=== PATIENT | female | born 1970 | race Caucasian/White ===

== ENCOUNTER 2018-05-10 11:02 | Emergency (ER) | payer OTHER, SELFPAY ==
[2018-05-10 11:04] VITALS: BP 130/84; PULSE 123; PULSE 126; RESP 17; TEMP 36.4; O2SAT 96; BMI 35.2
--- NOTE | 2018-05-10 11:10 | EKG12_ITS ---
Test Reason : TACHYCARDIA Blood Pressure : / mmHG Vent. Rate : 125 BPM Atrial Rate : 125 BPM P-R Int : 150 ms QRS Dur : 070 ms QT Int : 294 ms P-R-T Axes : 051 073 033 degrees QTc Int : 424 ms Sinus tachycardia Nonspecific T wave abnormality Abnormal ECG Confirmed by LAN AUGUST MD ([id number]), design editor AD REY ([id number] on 05/16/2018 8:52:58 AM Referred By: EDWIGE Confirmed By:LAN AUGUST MD
--- NOTE | 2018-05-10 11:18 | NURSING ---
NO OLD EKGS
--- NOTE | 2018-05-10 11:45 | RAD_ITS ---
STUDY: X-RAY CHEST REASON FOR EXAM: Female, 47 years old. Chest pain TECHNIQUE: Single AP portable view of the chest. COMPARISON: None. FINDINGS: Left chest wall Mediport with tip in the upper SVC The lungs are clear and expanded. There is no demonstrated pleural abnormality. Normal size heart. Normal mediastinum and raheem. Normal visualized pulmonary arteries. Normal visualized aortic arch and descending thoracic aorta. There is a dextroscoliosis of the thoracic spine. Normal visualized ribs, clavicles, and shoulders. There is no demonstrated abnormality of the visualized soft tissue structures of the upper abdomen. RAD/Chest 1 View (Portable) IMPRESSION: No acute cardiopulmonary disease Electronically Signed: Jerel Bonner DO at 12:22 EST Tel , Service support ,
--- NOTE | 2018-05-10 12:25 | VDLE_ITS ---
Reason For Study: LEG PAIN RIGHT LEFT GSV is normal. GSV is normal. CFV is compressible, spontaneous, phasic, CFV is compressible, spontaneous, phasic, competent and demonstrates normal competent, and demonstrates normal augmentation. augmentation. FV is compressible, spontaneous, phasic, FV is compressible, spontaneous, phasic, competent and demonstrates normal competent and demonstrates normal augmentation. augmentation. POP V is compressible, spontaneous, phasic, POP V is compressible, spontaneous, phasic, competent and demonstrates normal competent and demonstrates normal augmentation. augmentation. T/P Trunk is compressible. T/P Trunk is compressible. PTV is compressible. PTV is compressible. RT PerV is compressible. LT PerV is compressible. Procedure Exam performed portable in ED. A preliminary report was called and/or faxed to Dr. Carroll. Interpretation Summary No evidence for acute deep venous thrombosis bilateral lower extremities with patent and compressible bilateral great saphenous veins. Ordering Physician: Portillo Carroll Referring Physician: Andi Cuba Performed By: Dee Winter RVT
[2018-05-10 13:34] VITALS: BP 126/89; PULSE 118; RESP 18; O2SAT 98
[2018-05-10] MEDS: 0.9% Normal Saline 1,000 ML 999 ML IV ×2 (13:39→13:45)
[2018-05-10 14:05] LABS: Absolute Lymphocyte Count 0.54 X10^3/ul (0.83-4.51); Absolute Neutrophil Count 0.7 X10^3/uL (2.0-7.7); Basophil# 0.02 X10^3/uL; Basophil% 1.5 % (0-1); Eosinophil# 0.02 X10^3/uL; Eosinophils% 1.5 % (0-5); Hematocrit 38.4 % (37-47); Hemoglobin 12.6 g/dl (12.0-15.0); Lymphocyte # 0.54 X10^3/ul (4.0); Lymphocyte % 41.2 % (19-41); Mean Corp Hgb Conc 32.8 g/gl (32-36); Mean Corpuscular Hgb 28.7 pg (27.0-32.0); Mean Corpuscular Volume 87.5 fL (81-99); Mean Platelet Vol. 10.2 fl (6.2-12.0); Monocyte# 0.07 X10^3/uL; Monocyte% 5.3 % (0-10); Neutrophil # 0.65 X10^3/uL (2.7-7.7); Neutrophil % 49.7 % (47-70); Platelet Count 171 K/mm3 (150-450); RBC Distribution Width CV 14.8 % (11.6-14.6); RBC Distribution Width SD 47.2 fl (35.1-43.9); Red Blood Count 4.39 M/mm3 (4.2-5.4); White Blood Count 1.3 K/mm3 (4.4-11.0)
[2018-05-10 14:06] LABS: Differential Indicated SCAN CRITERIA MET; POSITIVE COUNT YES; POSITIVE DIFFERENTIAL YES; POSITIVE MORPHOLOGY NO
[2018-05-10 14:20] LABS: Anion Gap 11 (5-15); BUN 17 mg/dL (7-18); BUN/Creat Ratio 22.3 RATIO (10-20); Calcium,Total 9.3 mg/dL (8.5-10.1); Chloride 101 mmol/L (98-107); Creatinine, Serum 0.76 mg/dL (0.55-1.02); EST Glomerular Filtration Rate 86 mL/min (>60); Est Glom Filt Rate - Afr Amer 104 mL/min (>60); Glucose 225 mg/dL (74-106); Sodium Level 136 mmol/L (136-145); Thyroid Stim Hormone (TSH) 1.37 uIU/mL (0.358-3.74)
--- NOTE | 2018-05-10 14:37 | ED.RN ---
LAB CALLED WITH CRITICAL VALUE WBC 1.3. DR. SIMS AWARE, NO NEW ORDERS AT THIS TIME.
--- NOTE | 2018-05-10 14:52 | ED.VISSUMM ---
- ER Visit Summary Date of Service: 05/10/18 Chief Complaint: Tachycardia History of Present Illness: The patient is a [address] Cuba and Dr. Tsang. She has a history of breast cancer and is on chemotherapy. Her last dose was 6 days ago[address] She saw Dr. Alvarez the radiation oncologist today and was found to have a fast heart rate. Patient reports that she cannot tell her heart rate is fast and that she does not feel any different than usual. Patient denies any fever or chills. No chest pain, palpitations, cough, shortness of breath. She reports that she has abdominal pain is 2 out of 10 from the chemotherapy and is unchanged from her prior doses. She denies any nausea, vomiting, or diarrhea. Physical Examination: Vitals: 97.6, 130/84, 123, 17, 96% room air which is not hypoxic. General: Well-nourished and well-developed. Head: Normocephalic atraumatic. Neck: Supple, no lymphadenopathy. No JVD. Nontender. Cardiovascular: Tachycardic regular rhythm. No murmurs. Respiratory: No respiratory distress. Clear to auscultation bilaterally. Abdominal: Soft, nontender, nondistended, normal bowel sounds. No guarding, rebound, or peritoneal signs. Back: Nontender. Extremities: Nontender, no edema. Skin: Normal color, no rash. Neurologic: Alert and oriented ?3. Cranial nerves II through XII are intact. Normal strength and sensation. Psych: Normal affect. Test Results: EKG is sinus tach at [address] changes. Troponin is negative. TSH is 1.37. Chem-7 shows a glucose 225. CBC shows a white count of 1.3 with 49.7 segmented neutrophils giving an absolute neutrophil count of 646. Chest x-ray is normal. By lower extreme Dopplers are negative. Emergency Department Course and Treatment: Patient given 2 L of normal saline and repeat heart rate is approximate 100. She is resting comfortably. Treatment Plan: Patient was discussed with Dr. Tsang. She is not on any chemotherapeutic agents that are cardiotoxic. She will be discharged instructions push fluids and follow-up with him for further evaluation and treatment. Patient is instructed to return to the emergency department for fever or for any further concerns. Disposition: To home in improved and stable condition. Impression: 1. Sinus tachycardia. 2. Breast cancer and chemotherapy. 3. Absolute neutrophil count 646. This note was generated with [employer] dictation software. It may contain incorrect words, spelling, and punctuation that were not noted in review of the chart prior to signing ED Disposition - Plan for ED Patient: Disposition: Home or Assisted Living Instructions: ED Dehydration Referrals: Andi Cuba MD [Primary Care Provider] - 1-2 Days if not improving
[2018-05-10 16:14] VITALS: BP 120/75; PULSE 109; RESP 18
[2018-05-10 16:15] VITALS: BP 120/75; PULSE 109; RESP 18
[2018-05-11 13:35] LABS: Pathologist Review Reviewed
== END 2018-05-10 16:17 | disposition home or self-care (01) ==
LOC: ED 13:01
PROVIDERS: Emergency Provider Emergency Medicine; Family Provider Family Medicine; PCP Family Medicine
DX: R00.0 Tachycardia, unspecified (principal); C50.919 Malignant neoplasm of unspecified site of unspecified female breast; Z79.899 Other long term (current) drug therapy
CPT/HCPCS: 36591; 71045; 80048; 84443; 84484; 85025; 93005; 93970; 96360; 96361; 99283; J7030; A4216

== ENCOUNTER 2018-05-20 13:53 | Emergency (ER) | payer OTHER, SELFPAY ==
[2018-05-20] VITALS (7 sets, daily range): BP systolic 115–154; BP diastolic 72–82; PULSE 99–120; RESP 16–25; TEMP 36.3; O2SAT 94–98; BMI 36.1
--- NOTE | 2018-05-20 14:10 | EKG12_ITS ---
Test Reason : SOB Blood Pressure : / mmHG Vent. Rate : 112 BPM Atrial Rate : 112 BPM P-R Int : 164 ms QRS Dur : 074 ms QT Int : 304 ms P-R-T Axes : 035 026 026 degrees QTc Int : 414 ms Sinus tachycardia Possible Left atrial enlargement Borderline ECG Confirmed by MATA CAMACHO, LAN ([id number]), production editor LEISA FLOYD ([id number] on 05/22/2018 4:21:35 PM Referred By: Confirmed By:LAN AUGUST MD
--- NOTE | 2018-05-20 14:11 | CT_ITS ---
STUDY: CTA CHEST REASON FOR EXAM: Female, 47 years old. History of breast cancer and lumpectomy RADIATION DOSAGE (If Supplied By Facility): CTDIvol = ( 10.29 ) mGy, DLP = ( 463.37 ) mGycm TECHNIQUE: The examination was performed with the intravenous administration of Isovue 370 100 IV. Post-processing of the angiographic images was performed, with multiplanar reformation and 3D reconstruction. Individualized dose optimization techniques were used for this CT. COMPARISON: [facility] 08/24/2018 chest radiograph FINDINGS: Normal enhancement of the main pulmonary artery and right and left pulmonary arteries. Normal enhancement of the bilateral peripheral pulmonary arteries. There is no demonstrated pulmonary embolism. Normal thoracic aorta and visualized great vessels. Trace amount of pericardial fluid seen. No evidence for lung consolidation or pneumothorax. Slightly prominent mediastinal lymph nodes. Subtle platelike atelectasis in the left lingula as well as the left lower lobe. Normal platelike atelectasis in the right lung base. The central airways are patent. Hepatic steatosis Small hiatal hernia Postsurgical changes in the right breast noted with calcifications and surgical clips. Residual recurrent disease cannot be excluded from this examination. Degenerative changes of the cervical spine would dextroconvex thoracic curvature IMPRESSION: No evidence for pulmonary embolism No evidence for aortic dissection. Electronically Signed: Israel Tanner, at 16:32 EDT Tel , Service support , CT/CTA Chest W/WO Contrast
[2018-05-20] MEDS: 0.9% Normal Saline 1,000 ML 999 ML IV (15:00)
--- NOTE | 2018-05-20 15:34 | ED.VISSUMM ---
- ER Visit Summary Date of Service: 05/20/18 Chief Complaint: Shortness of breath History of Present Illness: The patient is a 47 F with shortness of breath, she is on chemotherapy for lung cancer. She has a cough which is dry nonproductive. She has no fever or chills she has no back pain. She has no leg edema or pain in the calf or leg. Physical Examination: Patient appears well, her lungs are clear she is tachycardic she has a soft and nontender abdomen she has no edema or calf tenderness. She is slightly tachypneic. Emergency Department Course and Treatment: Patient will need a CT angiogram. Impression: Shortness of breath This note was generated with [employer] dictation software. It may contain incorrect words, spelling, and punctuation that were not noted in review of the chart prior to signing ED Disposition - Plan for ED Patient: Referrals: Andi Cuba MD [Primary Care Provider] -
--- NOTE | 2018-05-20 15:41 | ED.DCSUM_ITS ---
- ER Visit Summary Date of Service: 05/20/18 Chief Complaint: Shortness of breath History of Present Illness: The patient is a 47 F with shortness of breath, she is on chemotherapy for lung cancer. She has a cough which is dry nonproductive. She has no fever or chills she has no back pain. She has no leg edema or pain in the calf or leg. Physical Examination: Patient appears well, her lungs are clear she is tachycardic she has a soft and nontender abdomen she has no edema or calf tenderness. She is slightly tachypneic. Emergency Department Course and Treatment: Patient will need a CT angiogram. Impression: Shortness of breath This note was generated with [employer] dictation software. It may contain incorrect words, spelling, and punctuation that were not noted in review of the chart prior to signing ED Disposition - Plan for ED Patient: Referrals: Andi Cuba MD [Primary Care Provider] -
[2018-05-20 15:44] LABS: Anion Gap 5 (5-15); BUN 9 mg/dL (7-18); Calcium,Total 8.6 mg/dL (8.5-10.1); Chloride 110 mmol/L (98-107); Creatinine, Serum 0.75 mg/dL (0.55-1.02); EST Glomerular Filtration Rate 88 mL/min (>60); Est Glom Filt Rate - Afr Amer 107 mL/min (>60); Estimated Creatinine Clearance 76.71 ml/min; Glucose 220 mg/dL (74-106); Potassium 3.7 mmol/L (3.5-5.1); Sodium Level 140 mmol/L (136-145)
[2018-05-20 17:57] LABS: Absolute Lymphocyte Count 1.44 X10^3/ul (0.83-4.51); Absolute Neutrophil Count 3.5 X10^3/uL (2.0-7.7); Basophil# 0.03 X10^3/uL; Basophil% 0.5 % (0-1); Eosinophil# 0.04 X10^3/uL; Eosinophils% 0.7 % (0-5); Hematocrit 33.3 % (37-47); Lymphocyte # 1.44 X10^3/ul (4.0); Lymphocyte % 25.4 % (19-41); Mean Corpuscular Hgb 29.3 pg (27.0-32.0); Mean Corpuscular Volume 88.8 fL (81-99); Mean Platelet Vol. 8.9 fl (6.2-12.0); Monocyte# 0.59 X10^3/uL; Monocyte% 10.4 % (0-10); Neutrophil # 3.46 X10^3/uL (2.7-7.7); Neutrophil % 61.1 % (47-70); Platelet Count 239 K/mm3 (150-450); RBC Distribution Width CV 16.7 % (11.6-14.6); Red Blood Count 3.75 M/mm3 (4.2-5.4); White Blood Count 5.7 K/mm3 (4.4-11.0)
[2018-05-20 18:00] LABS: POSITIVE COUNT NO; POSITIVE DIFFERENTIAL NO; POSITIVE MORPHOLOGY NO
--- NOTE | 2018-05-20 18:26 | ED.DEP ---
ED Disposition - Plan for ED Patient: Instructions: ED Dyspnea Shortness of Breath Referrals: Andi Cuba MD [Primary Care Provider] -
== END 2018-05-20 19:08 | disposition home or self-care (01) ==
LOC: ED 14:53
PROVIDERS: Emergency Provider Emergency Medicine; Family Provider Family Medicine; PCP Family Medicine
DX: R06.02 Shortness of breath (principal); Z79.899 Other long term (current) drug therapy; E11.9 Type 2 diabetes mellitus without complications; C34.90 Malignant neoplasm of unspecified part of unspecified bronchus or lung; R05 Cough; Z85.3 Personal history of malignant neoplasm of breast
CPT/HCPCS: 71275; 80048; 84484; 85025; 93005; 96360; 99283; J7030; Q9967; A4216